=== PATIENT | female | born 1980 | race Caucasian/White ===

== ENCOUNTER 2018-04-19 10:31 | Emergency (ER) | payer BC ==
[~2018-04-19] VITALS: Ht 165.1 cm; Wt 110.7 kg
[2018-04-19] MEDS ORDERED: Vitamin B Comple1 EA PO (10:51)
[2018-04-19] MEDS ORDERED: ERGO400 PO (10:51)
[2018-04-19] MEDS ORDERED: LEVSOD75 PO (10:51)
[2018-04-19] MEDS ORDERED: DHEA25 MG PO (10:51)
[2018-04-19] MEDS ORDERED: XARELTO10 MG PO (11:04)
== END 2018-04-19 11:09 | disposition home or self-care (01) ==
LOC: ER 10:31
DX: I82.811 Embolism and thrombosis of superficial veins of right lower extremity (principal); Z91.040 Latex allergy status; Z88.8 Allergy status to other drugs, medicaments and biological substances; Z79.899 Other long term (current) drug therapy; E03.9 Hypothyroidism, unspecified; D64.9 Anemia, unspecified
CPT/HCPCS: 93971; 99283-25

== ENCOUNTER → 2023-05-01 | Outpatient (CLI) | payer BC ==
[~2023-05-01] MED LIST: DHEA25 MG PO; ERGO400 PO; LEVSOD75 PO; Vitamin B Comple1 EA PO; XARELTO10 MG PO
== END ==
LOC: LAB SHORT 10:30 → LAB 10:30
DX: R30.0 Dysuria (principal)
CPT/HCPCS: 87086